=== PATIENT | male | born 1965 ===

== ENCOUNTER 2023-04-13 12:10 | Emergency (ER) | payer MEDICAID, SELFPAY ==
[2023-04-13] VITALS (9 sets, daily range): BP systolic 111–135; BP diastolic 75–100; PULSE 76–99; RESP 16–18; O2SAT 98–100; BMI 23.7
[2023-04-13] MEDS: 0.9 % SODIUM CHLORIDE 1000 ml 1,000 ML IV (12:20)
--- NOTE | 2023-04-13 12:47 | CRLHL7_ITS ---
For Patients: As a result of the Cures Act, medical imaging exams and procedure reports are released immediately into your electronic medical record. You may view this report before your referring provider. If you have questions, please contact your health care provider. INDICATION: Knee laceration TECHNIQUE: Two views right knee FINDINGS: Normal alignment. No acute fractures or acute osseous abnormalities. No effusions seen moderate degenerative change. No radiopaque foreign body. Soft tissue density over the medial knee likely related to known laceration. Dictated by Maribell Nolan MD @ 04/13/2023 1:42:59 PM (Electronically Signed)
--- NOTE | 2023-04-13 12:49 | ED_ITS ---
HPI - Extremity Injury (Lower) General Chief Complaint: Extremity Pain/Injury, Lower Stated Complaint: L thigh laceration Time Seen by Provider: 04/13/23 12:23 History of Present Illness HPI Narrative: This 57-year-old male comes in by ambulance because of a laceration to the medial aspect of his right knee joint. He was using a utility knife and accidentally cut into his knee in this area. He had persistent bleeding and took his shirt to create a sort of tourniquet. He continued to have bleeding and got concerned about this so he called the ambulance. Ambulance personnel applied an official tourniquet which brought some relief to the bleeding but soon thereafter he developed severe pain in his right leg as would be expected with the placement of a tourniquet. The patient states that he is not on any blood thinners. Related Data Home Medications Medication Instructions Recorded Confirmed yxswrdl-kjtnidrlabusa-yshkonoc 250 1 tab PO Q6H PRN 04/13/23 04/13/23 mg-250 mg-65 mg tablet (Excedrin Migraine) cholesterol medication 04/13/23 sumatriptan succinate 25 mg tablet 25 mg PO Q2-4H PRN 04/13/23 04/13/23 (Imitrex) Previous Rx's Medication Instructions Recorded ketorolac 10 mg tablet 10 mg PO Q8H 5 days #15 tabs 04/13/23 Allergies Allergy/AdvReac Type Severity Reaction Status Date / Time Nausea meds AdvReac Severe Uncoded 04/13/23 12:50 Review of Systems Status of ROS: Reports: 10 or more systems reviewed and unremarkable except as noted in History and below Narrative: Constitutional: No fevers, no weight gain or loss. Eyes: No discharge. No vision changes. HENT: No congestion, no sore throat, no ear pain. Cardiovascular: No chest pain, no palpitations. Respiratory: No shortness of breath, no wheezes, no cough. Gastrointestinal: No abdominal pain, no vomiting, no diarrhea. Genitourinary: No dysuria, no hematuria. Musculoskeletal: Normal range of motion. Laceration to the right leg as described above with severe pain in the right lower leg because of the placement of a tourniquet. Skin: No rashes, no pruritis. Neurological: No dizziness, weakness, sensory change, speech change. Endo/Heme/Allergies: No bruising or bleeding. No polydipsia. Pysch: no suicidality, no anxiety, no insomnia. All other systems reviewed and are negative. PFSH PFS Social History Smoking Status: Current every day smoker How often do you have a drink containing alcohol: never AUDIT-C Alcohol total score: 0 Non-prescribed substance use: marijuana (any form) Exam Narrative: Exam Narrative: Constitutional: Well-developed, well-nourished, no acute distress. HEENT: Normocephalic, atraumatic. Neck: Normal range of motion. Nontender. Supple. Heart: Regular. No murmurs. Normal rate. Intact distal pulses. Lungs: Clear to auscultation. No chest discomfort. No wheezes, rhonchi, or rales. Abdomen: Normal bowel sounds. Nontender. No rebound tenderness. Genitalia: Deferred. Back: No midline tenderness. Normal range of motion. Extremities: Tourniquet is removed from his leg which brought relief of the pain. I examined the wound which oozes blood but no sign of arterial pulsating blood flow. There is a 5 cm wound medial and a bit superior to the right knee joint. Skin: Intact. No rash. Warm. No erythema or pallor. Neurologic: No altered sensation. No weakness. Alert and oriented. Psychiatric: No suicidality. No anxiety or depression. No insomnia. Nursing notes and vitals signs are reviewed. Const: Vital Signs, click to edit/add: Vital Signs - 24 hr 04/13/23 12:20 04/13/23 12:40 04/13/23 12:50 Pulse Rate [Pulse Oximeter] 99 87 89 Respiratory Rate 16 16 16 Blood Pressure [Le ft Upper Arm] 114/96 H 132/98 H 135/98 H Pulse Oximetry 100 99 100 Oxygen Delivery Me thod Room Air 04/13/23 12:57 04/13/23 13:00 Pulse Rate [Pulse Oximeter] 81 87 Respiratory Rate 18 16 Blood Pressure [Le ft Upper Arm] 135/98 H 124/100 H Pulse Oximetry 100 100 Oxygen Delivery Me thod Room Air Course Vital Signs Vital signs: Initial Vital Signs Pulse Rate 99 04/13/23 12:20 Respiratory Rate 16 04/13/23 12:20 Blood Pressure 114/96 H 04/13/23 12:20 Blood Pressure Mean 102 04/13/23 12:20 Blood Pressure Position Supine 04/13/23 12:20 Pulse Oximetry 100 04/13/23 12:20 Oxygen Delivery Method Room Air 04/13/23 12:20 Vital Signs Pulse Rate 99 04/13/23 12:20 Respiratory Rate 16 04/13/23 12:20 Blood Pressure 114/96 H 04/13/23 12:20 Pulse Oximetry 100 04/13/23 12:20 Oxygen Delivery Method Room Air 04/13/23 12:20 Pulse Rate 87 04/13/23 13:00 Respiratory Rate 16 04/13/23 13:00 Blood Pressure 124/100 H 04/13/23 13:00 Pulse Oximetry 100 04/13/23 13:00 Oxygen Delivery Method Room Air 04/13/23 12:57 MDM - Extremity Injury (Lower) MDM Narrative Medical decision making narrative: This patient comes in with a laceration to his right leg as described above. He arrives with a tourniquet in place and had a lots of discomfort and severe pain in his right lower leg because of the tourniquet. This was removed and the bandage also removed from the wound. The patient had immediate relief of his pain but does continue to have some oozing of blood from the wound. At 1 point there was a vessel that was squirting blood in from the wound. It was more likely a vein as it was not a pulsatile flow. I used lidocaine 1% with epinephrine to anesthetize the area then explored the wound to its base. I then placed 3 sutures in the subcutaneous tissue using 3.0 Vicryl suture to ap proximate the wound edges. Then I used 4.0 Ethilon sutured to apply 7 stitches in interrupted fashion. This cause the bleeding to stop and he developed a hematoma in this area as would be expected. I did acquire a x-ray of the right knee to look for any subcutaneous air or other complication of this injury as his knee joint is nearby. By my review this result returns with normal findings. The patient received instructions regarding wound care. A prescription for Toradol is provided. He understands that this medicine can prolonged bleeding somewhat but he prefers this medicine for pain over against others. He is instructed to return to clinic in 7-10 days for suture removal. Discharge Plan Discharge Clinical Impression: Laceration Patient Disposition: Home w/ Parent or Adult Condition: Improved Additional Instructions: Keep wound clean and dry. Take medication as needed and directed. Follow-up with clinic appointment as scheduled for suture removal in 7-10 days. Return if worsening. Prescriptions: New ketorolac 10 mg tablet 10 mg PO Q8H 5 Days Qty: 15 0RF No Action cholesterol medication Excedrin Migraine 250-250-65 mg tablet 1 tab PO Q6H PRN sumatriptan succinate [Imitrex] 25 mg tablet 25 mg PO Q2-4H PRN Rx Instructions: do not exceed 8 doses per 24 hrs Stand Alone Forms: [email or web address] Info Instructions
--- OUTSIDE RECORDS SUMMARY | 2023-04-13 13:43 | XMS_ITS | Continuity of Care Document ---
Author Name Unknown Organization [facility] Address [address] [place] [address] Phone Care Team Providers Care Replanter Name Role Phone Himanshu Petit Unavailable Unavailable Allergies, Adverse Reactions, Alerts Substance Reaction Status Criticality No Known Allergies Active No Inform ation Medications Medication Instructions Dosage Effective Dates (start - stop) Status Comments CELECOXIB 200 MG CAPSULE TAKE 1 CAPSULE BY MOUTH TWICE A DAY NEEDED - Active cyclobenzaprine 10 mg tablet take 1 by Oral route once TID 1 - Active EXCEDRIN MIGRAINE (unknown strength) Not Available - Active CELECOXIB 200 MG CAPSULE TAKE 1 CAPSULE BY MOUTH TWICE A DAY NEEDED - No Longer Active Procedures Procedure Date Office/Outpatient Visit,Est, Mod 2021 Office/Outpatient Visit,Est, Mod 2021 Office/Outpatient Visit,Est, Mod 2021 OFFICE/OUTPATIENT VISIT EST Phone Office/Outpatient Visit,New, Mod 2019 Advance Directives Directive Yes / No Effective Date File Name No Information Encounters Encounter Description Practice Location Reason(s) For Visit Diagnoses Date Provider Providers Copied on Encounter [facility], [address], [place], [id number] , [place] tel: [phone] [facility] [place] No Information 2 [place]. [facility], [address], [place], [id number] , [place]. tel:[phone] Office/Outpat ient Visit,Est, Mod [facility], [address], [facility] [place], [id number] , [place] tel: [phone] [facility] Birdie Smith Other spondylosis, lumbar regionCervicalgia 2 [place]. [facility], [address], [facility] [place], [place], [id number] , [place]. tel: [phone] Referring Provider: Nina Tafoya V, [facility] [address], [place], [address] . tel:[phone] Office/Outpat ient Visit,Est, Mod [facility], [address], [facility] [place], [id number] , [place] tel: [phone] [facility] Nov- 2 [place]. [facility] [place], [address], [facility] [place], [place], [id number] , [place]. tel: [phone] Referring Provider: Nina Tafoya V, [facility] [address], [place], [address] . tel:[phone] Office/Outpat ient Visit,Est, Mod [facility], [address], [facility], [id number] , [place] tel: [phone] [facility] Radiculopathy, lumbar region Fe-0 2 [place]. [facility] [place], [address], [facility] [place], [id number] , [place]. tel: [phone] Referring Provider: Nina Tafoya V [facility] [address], [place], [address] . tel:[phone] OFFICE/OUTPAT IENT VISIT EST Phone [facility], [address], [facility] [place], [id number] , [place] tel: [phone] [facility] No Information Jul- 0 [place]. [facility], [address], [place], [id number] , [place]. tel:[phone] Referring Provider: Honorio [facility] [address] [place], [address] . tel:[phone] Office/Outpat ient Visit,New, Mod [facility], [address], [place], [id number] , [place] tel:[phone] [facility] [place] Low back pain 0 [place]. [facility], [address], [place], [place], [address] , [place]. tel:[phone] Referring Provider: [facility] [place], [address] . tel:[phone] Family History Family Member Type Diagnosis Age At Onset No Information Payers Payer name Insurance type Covered democrat ID Vitaileana mufaina(s) Caitlin BRENDA Potter 2021 CI [id number] Social History Type Description Quantity Date Captured Comments Sex Male Smoking Status No Information Chief Complaint And Reason For Visit No Information Reason For Referral Reason For Referral No Information Plan Of Treatment Date Type Action Status Future Order: Radiology Order Fa cet Joint Block Lumbar ([id number]), Ordered on: Ordered History Of Present Illness Encounter Date Complaint History Of Prese nt Illness No Information Functional Status Date Functional Assessmen t No Information Medications Administered Medication Instructions Dosage Effective Dates (start - stop) Status Comments CELECOXIB 200 MG CAPSULE TAKE 1 CAPSULE BY MOUTH TWICE A DAY NEEDED - No Longer Active Instructions Date Instruction Additional Infor mation No Information Assessments Type Assessment Date No Information Patient Care Teams Name Effective Dates (start - stop) Status Members No Information
--- OUTSIDE RECORDS SUMMARY | 2023-04-13 13:43 | XMS_ITS | Continuity of Care Document ---
Author Name Unknown Organization [facility] Address [address] [address] [place] [address] Phone Care Team Providers Care Filter Tank Tender Name Role Phone No Information Unavailable Unavailable Allergies, Adverse Reactions, Alerts Substance Reaction Status Criticality No Known Allergies Active No Inform ation Medications Medication Instructions Dosage Effective Dates (start - stop) Status Comments No Drug Therapy Prescribed Procedures Procedure Date Colonoscopy Flex; W/remov Les- Level Iv-surg Path Gross/micro Advance Directives Directive Yes / No Effective Date File Name No Information Encounters Encounter Description Practice Location Reason(s) For Visit Diagnoses Date Provider Providers Copied on Encounter [facility], [address] [address], [place], [id number], [place] tel:[phone] No Information 3 No Information [email or web address] [place], [address] [address], [facility] [place], [id number], [place] tel:[phone] [facility] GI Symptoms or Concerns (chief complaint) Colorectal polyp detected on colonoscopyDiver ticulosis of colon without diverticulitisHe morrhoids, internalEncounte r for screening for malignant neoplasm of colonBenign neoplasm of cecumBenign neoplasm of descending colonFamily history of malignant neoplasm of digestive organs Nov- 3 [facility]. [address] [facility], [place], [place], [id number], [place]. tel:[phone] Referring Provider: Christina Costello MD, [address] [place] [address], [address]. tel:[phone] [facility], [address] [address], [place], [place], [id number], [place] tel:[phone] No Information No Information Referring Provider: Christina Costello MD, [address] [place], [address]. tel:[phone] Family History Family Member Type Diagnosis Age At Onset No Information Immunizations Vaccine Date Status Comments SARS-COV-2 (COVID-19) vaccin e, mRNA, spike protein, LNP, preservative free, 100 mcg/0.5mL dose or 50 mcg/0.25mL dose administered Note: Pivot3 bi -directional interface ; Source: Other Registry SARS-COV-2 (COVID-19) vaccin e, mRNA, spike protein, LNP, preservative free, 100 mcg/0.5mL dose or 50 mcg/0.25mL dose administered Note: Pivot3 bi -directional interface ; Source: Other Registry Payers Payer name Insurance type Covered green party ID Authoriza tion(s) No Information Social History Type Description Quantity Date Captured Comments Sex Male Smoking Status No Information Chief Complaint And Reason For Visit No Information Reason For Referral Reason For Referral No Information History Of Present Illness Encounter Date Complaint History Of Prese nt Illness GI Symptoms or Concerns Functional Status Date Functional Assessmen t No Information Medications Administered Medication Instructions Dosage Effective Dates (start - stop) Status Comments No Drug Therapy Prescribed Instructions Date Instruction Additional Infor radha Diverticulosis/Diverticulitis Re lated to Colorectal polyp detected on colonoscopy Colon Polyps Related to Color ectal polyp detected on colonoscopy High Fiber Diet Related to Color ectal polyp detected on colonoscopy Assessments Type Assessment Date No Information Patient Care Teams Name Effective Dates (start - stop) Status Members No Information
== END 2023-04-13 14:00 | disposition home or self-care (01) ==
LOC: ED 13:41
PROVIDERS: Emergency Provider Emergency Medicine Emergency Medical Services
DX: S71.112A Laceration without foreign body, left thigh, initial encounter (principal); W26.0XXA Contact with knife, initial encounter
CPT/HCPCS: 12032; 73560; 99283; 99284; J7030